=== PATIENT | female | born 1950 | race Caucasian/White ===

== ENCOUNTER 2017-05-13 06:26 | Day surgery (SDC) | payer MEDICARE, OTHER ==
[2017-05-13] MEDS ORDERED: Lactated Ringers 1,000 ML IV SCH (07:00)
[2017-05-13] MEDS ORDERED: Midazolam 1 MG/ML 2 ML SDV ONE (07:34)
[2017-05-13] MEDS ORDERED: fentaNYL 100 MCG/2 ML SDV ONE (07:34)
[2017-05-13] MEDS ORDERED: Propofol 200 MG/20 ML SDV ONE ×2 (07:34→08:00)
[2017-05-13 09:30] VITALS: BP 122/69
--- NOTE | 2017-05-13 11:40 | OR ---
DATE OF PROCEDURE: 05/13/2017 PREOPERATIVE DIAGNOSIS: History of colon polyps. POSTOPERATIVE DIAGNOSES: 1. Unremarkable colonoscopy. 2. History of colon polyps. PROCEDURE PERFORMED: Colonoscopy to the cecum. ANESTHESIA: IV anesthesia with monitored anesthesia care. INDICATION: This 66-year-old white female is referred for a colonoscopy because of a history of colon polyps. She says her last colonoscopic exam was done three years ago. I counseled her for the procedure including risks and alternatives, and she gave her informed consent to proceed. DESCRIPTION OF PROCEDURE: The patient was placed in the left lateral decubitus position. IV anesthesia was administered by the Anesthesia Service. Time-out was held. A rectal exam was performed, which was unremarkable. The flexible video Olympus colonoscope was introduced through her anus, up her rectum, and out her colon all the way to the cecum. To accomplish this, we did apply some abdominal compression. Once the cecum was reached, the scope was slowly withdrawn, examining the mucosa throughout. No mucosal abnormalities were noted. The scope was retroflexed in the rectum with the distal rectum appearin unremarkable. The scope was straightened and removed. She tolerated the procedure well. Artie Diaz MD /[id number] RAOUL
== END 2017-05-13 09:32 | disposition home or self-care (01) ==
LOC: JP.SDS 06:26
PROVIDERS: ATTEND Surgery
DX: Z12.11 Encounter for screening for malignant neoplasm of colon (principal); Z86.010 Personal history of colon polyps
CPT/HCPCS: G0105; J2250; J2704; J3010; J7120

== ENCOUNTER 2018-02-19 07:33 | Emergency (ER) | payer MEDICARE, OTHER ==
[2018-02-19 07:48] VITALS: BP 102/62
--- NOTE | 2018-02-19 08:13 | EDM.PDOC ---
ED HPI GENERAL MEDICAL PROBLEM - General Chief Complaint: Eye Problems Stated Complaint: LOW GRADE TEMP SORE THROAT Time Seen by Provider: 02/19/18 08:08 Source of Information: Reports: Patient, Family History Limitations: Reports: No Limitations - History of Present Illness INITIAL COMMENTS - FREE TEXT/NARRATIVE: pt has had some sinus congestion and a cough. She does have a sore throat. She noted this am that her rt eye was mattery and slightly red. Onset: Today, Other (pt has had the sinus problem earlier) Duration: Hour(s): Location: Reports: Face - Related Data Allergies Allergy/AdvReac Type Severity Reaction Status Date / Time Sulfa (Sulfonamide Allergy Rash Verified 05/13/17 06:51 Antibiotics) Home Meds: Home Meds Calcium Carb/Vit D3/Minerals [Hm Calcium 600 mg-Vit D Tab] 1 each PO DAILY 06/06 [History] Folic Acid/Mv,Fe,Min [Centrum Multivitamin] 1 each PO DAILY 06/06/13 [History] Wheat Dextrin [Benefiber] 1 each PO DAILY 05/13/17 [History] Past Medical History HEENT History: Reports: Hard of Hearing Gastrointestinal History: Reports: Colon Polyp [employer]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: Musculoskeletal History: Reports: Arthritis - Past Surgical History HEENT Surgical History: Reports: Other (See Below) Other HEENT Surgeries/Procedures: ear surgery 2012 GI Surgical History: Reports: Colonoscopy Musculoskeletal Surgical History: Reports: Other (See Below) Other Musculoskeletal Surgeries/Procedures:: ankle fracture with surgical repair Social & Family History - Family History Family Medical History: Noncontributory - Tobacco Use Smoking Status *Q: Never Smoker - Caffeine Use Caffeine Use: Reports: Coffee - Recreational Drug Use Recreational Drug Use: No ED ROS GENERAL - Review of Systems Review Of Systems: See Below Constitutional: Reports: Fatigue HEENT: Reports: Eye Discharge, Sinus Problem Respiratory: Reports: Cough Cardiovascular: Reports: No Symptoms Endocrine: Reports: No Symptoms GI/Abdominal: Reports: No Symptoms : Reports: No Symptoms Musculoskeletal: Reports: No Symptoms Skin: Reports: No Symptoms Neurological: Reports: No Symptoms ED EXAM GENERAL W FULL EYE - Physical Exam Exam: See Below Text/Narrative:: pt arrived with a mattery eye and she has been having a sore throat and sinus congestion General Appearance: Alert, Mild Distress, Other ( rt eye is mildly injected. ) Ears: Normal TMs Nose: Normal Inspection Throat/Mouth: Normal Inspection Head: Atraumatic Neck: Lymphadenopathy (R), Lymphadenopathy (L) Respiratory/Chest: No Respiratory Distress Cardiovascular: Regular Rate, Rhythm GI/Abdominal: Soft, Non-Tender Course - Vital Signs Last Recorded V/S: Last Vital Signs Temp 36.6 C 02/19/18 07:48 Pulse 78 02/19/18 07:48 Resp 12 02/19/18 07:48 BP 102/62 02/19/18 07:48 Pulse Ox 94 L 02/19/18 07:48 - Orders/Labs/Meds Orders: Active Orders 24 hr Category Date Time Status CULTURE STREP A CONFIRMATION [RM] Stat Lab 02/19/18 08:12 Results STREP SCRN A RAPID W CULT CONF [RM] Stat Lab 02/19/18 08:12 Ordered - Re-Assessments/Exams Free Text/Narrative Re-Assessment/Exam: 02/19/18 08:42 strept was neg. Departure - Departure Time of Disposition: 08:42 Disposition: Home, Self-Care 01 Condition: Fair Clinical Impression: Sinusitis - Discharge Information Referrals: Hans Kingston MD [Primary Care Provider] - Forms: ED Department Discharge Care Plan Goals: push fluids, cool mist humidifier, gentamycin eye drops 1-2 drops in the rt eye , amoxicillin 500mg tid. - My Orders Last 24 Hours: My Active Orders 02/19/18 08:12 CULTURE STREP A CONFIRMATION [RM] Stat STREP SCRN A RAPID W CULT CONF [RM] Stat - Assessment/Plan Last 24 Hours: My Active Orders 02/19/18 08:12 CULTURE STREP A CONFIRMATION [RM] Stat STREP SCRN A RAPID W CULT CONF [RM] Stat
== END 2018-02-19 08:55 | disposition home or self-care (01) ==
LOC: JP.ED 07:33
DX: J32.9 Chronic sinusitis, unspecified (principal); Z88.2 Allergy status to sulfonamides; Z79.899 Other long term (current) drug therapy
CPT/HCPCS: 87081; 87430; 99284

== ENCOUNTER 2018-11-17 12:13 | Emergency (ER) | payer MEDICARE ==
--- NOTE | 2018-11-17 12:46 | EDM.PDOC ---
ED HPI GENERAL MEDICAL PROBLEM - General Chief Complaint: Lower Extremity Injury/Pain Stated Complaint: FALL, RIGHT HIP PAIN Time Seen by Provider: 11/17/18 12:44 Source of Information: Reports: Patient History Limitations: Reports: No Limitations - History of Present Illness INITIAL COMMENTS - FREE TEXT/NARRATIVE: pt slipped on the ice and she landed on her rt hip area. She was not able to bear weight. Onset: Today, Sudden Duration: Hour(s): Location: Reports: Lower Extremity, Right Associated Symptoms: Reports: No Other Symptoms Right Hip Pain Score (Numeric/FACES): 8 - Related Data Allergies Allergy/AdvReac Type Severity Reaction Status Date / Time Sulfa (Sulfonamide Allergy Rash Verified 11/17/18 12:31 Antibiotics) Home Meds: Home Meds Calcium Carb/Vit D3/Minerals [Hm Calcium 600 mg-Vit D Tab] 1 each PO DAILY 06/06 [History] Folic Acid/Mv,Fe,Min [Centrum Multivitamin] 1 each PO DAILY 06/06/13 [History] Wheat Dextrin [Benefiber] 1 each PO DAILY 05/13/17 [History] Past Medical History HEENT History: Reports: Hard of Hearing Gastrointestinal History: Reports: 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: Musculoskeletal History: Reports: Arthritis - Past Surgical History HEENT Surgical History: Reports: Other (See Below) Other HEENT Surgeries/Procedures: ear surgery 2012 GI Surgical History: Reports: Colonoscopy Musculoskeletal Surgical History: Reports: Other (See Below) Other Musculoskeletal Surgeries/Procedures:: ankle fracture with surgical repair 1995 Social & Family History - Family History Family Medical History: Noncontributory - Tobacco Use Smoking Status *Q: Never Smoker - Caffeine Use Caffeine Use: Reports: Coffee - Recreational Drug Use Recreational Drug Use: No Review of Systems - Review of Systems Review Of Systems: See Below Constitutional: Reports: No Symptoms Eyes: Reports: No Symptoms Ears: Reports: No Symptoms Nose: Reports: No Symptoms Mouth/Throat: Reports: No Symptoms Respiratory: Reports: No Symptoms Cardiovascular: Reports: No Symptoms GI/Abdominal: Reports: No Symptoms Musculoskeletal: Reports: Other (pt has pain in the rt hip area. ) Skin: Reports: Dryness Neurological: Reports: No Symptoms ED EXAM, GENERAL - Physical Exam Exam: See Below Free Text/Narrative:: Pt was getting back in her car and she slipped and fell. She landed on the rt hip. She now is unable to weight bear on the rt leg. Exam Limited By: No Limitations General Appearance: Alert, Anxious, Moderate Distress, Other (pupils are equal and reactive. ) Ears: Normal TMs Nose: Normal Inspection Throat/Mouth: Normal Inspection Head: Atraumatic Neck: Normal Inspection Respiratory/Chest: No Respiratory Distress Cardiovascular: Regular Rate, Rhythm GI/Abdominal: Soft, Non-Tender (Female) Exam: Deferred Rectal (Female) Exam: Deferred Back Exam: Normal Inspection Extremities: Normal Inspection Neurological: Alert, Oriented, Normal Cognition Psychiatric: Anxious Course - Vital Signs Last Recorded V/S: Last Vital Signs Temp 36.0 C 11/17/18 12:28 Pulse 66 11/17/18 14:55 Resp 16 11/17/18 12:28 BP 142/101 H 11/17/18 14:55 Pulse Ox 98 11/17/18 14:55 - Orders/Labs/Meds Labs: Laboratory Tests 11/17/18 11/17/18 11/17/18 Range/Units 15:22 15:22 16:08 WBC 14.2 H (4.5-11.0) K/uL RBC 5.00 (3.30-5.50) M/uL Hgb 14.5 (12.0-15.0) g/dL Hct 43.4 (36.0-48.0) % MCV 87 (80-98) fL MCH 29 (27-31) pg MCHC 33 (32-36) % Plt Count 227 (150-400) K/uL Neut % (Auto) 80 H (36-66) % Lymph % (Auto) 13 L (24-44) % [place] % (Auto) 6 (2-6) % Eos % (Auto) 0 L (2-4) % Baso % (Auto) 0 (0-1) % Sodium 142 (140-148) mmol/L Potassium 3.5 L (3.6-5.2) mmol/L Chloride 106 (100-108) mmol/L Carbon Dioxide 27 (21-32) mmol/L Anion Gap 12.5 (5.0-14.0) mmol/L BUN 14 (7-18) mg/dL Creatinine 0.7 (0.6-1.0) mg/dL Est Cr Clr Drug Dosing 80.39 mL/min Estimated GFR (MDRD) > 60 (>60) Glucose 100 (74-106) mg/dL Calcium 9.0 (8.5-10.1) mg/dL Total Bilirubin 0.5 (0.2-1.0) mg/dL AST 22 (15-37) U/L ALT 33 (12-78) U/L Alkaline Phosphatase 86 (46-116) U/L Total Protein 6.7 (6.4-8.2) g/dL Albumin 3.7 (3.4-5.0) g/dL Globulin 3.0 (2.3-3.5) g/dL Albumin/Globulin Ratio 1.2 (1.2-2.2) Urine Color Yellow Urine Appearance Clear Urine pH 7.0 (4.5-8.0) Ur Specific [place] 1.010 (1.008-1.030) Urine Protein Negative (NEGATIVE) mg/dL Urine Glucose (UA) Normal (NEGATIVE) mg/dL Urine Ketones 15 H (NEGATIVE) mg/dL Urine Occult Blood Moderate (NEGATIVE) Urine Nitrite Negative (NEGATIVE) Urine Bilirubin Negative (NEGATIVE) Urine Urobilinogen Normal (NORMAL) mg/dL Ur Leukocyte Esterase Negative (NEGATIVE) Urine RBC 5-10 H (0-5) Urine WBC 0-5 (0-5) Ur Epithelial Cells Few Amorphous Sediment Not seen Urine Bacteria Few Urine Mucus Not seen Meds: Medications Discontinued Medications Generic Name Dose Route Start Last Admin Trade Name Freq PRN Reason Stop Dose Admin Hydromorphone HCl 0.5 mg 11/17/18 15:25 11/17/18 15:48 Dilaudid IVPUSH 11/17/18 15:26 0.5 mg ONETIME ONE Administration Sodium Chloride 1,000 mls @ 250 mls/hr 11/17/18 15:30 11/17/18 15:47 Normal Saline IV 250 mls/hr ASDIRECTED NEW Administration Ondansetron HCl 4 mg 11/17/18 15:54 11/17/18 15:56 Zofran IVPUSH 11/17/18 15:55 4 mg ONETIME ONE Administration Ondansetron HCl Confirm 11/17/18 15:55 Zofran Administered 11/17/18 15:56 Dose 4 mg .ROUTE .STK-MED ONE Sodium Chloride 10 ml 11/17/18 15:23 Saline Flush FLUSH ASDIRECTED PRN Keep Vein Open - Re-Assessments/Exams Free Text/Narrative Re-Assessment/Exam: 11/17/18 15:29 xrays revealed a fracture of the neck of the rt hip without displacement. Departure - Departure Time of Disposition: 16:35 Disposition: DC/Tfer to Acute Hospital 02 Condition: Fair Clinical Impression: Closed right hip fracture - Discharge Information Referrals: Hans Kingston MD [Primary Care Provider] - Forms: ED Department Discharge Care Plan Goals: keep npo, transfer to [facility] for admission
--- NOTE | 2018-11-17 14:28 | CRLCR ---
. INDICATION: Right hip and pelvis pain. TECHNIQUE: AP view of the pelvis as well as AP and lateral projections of the right hip. COMPARISON: None. FINDINGS: Acute nondisplaced subcapital fracture of right femoral neck. No other acute traumatic abnormality. Hip joint space is normal. 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 Sacroiliac joints grossly negative. IMPRESSION: Acute nondisplaced subcapital right femoral neck fracture. Dictated by Mingo Chan MD @ Nov 17 2018 2:24PM Signed by Dr. Mingo Chan @ Nov 17 2018 2:26PM
[2018-11-17 14:56] VITALS: BP 142/101
[2018-11-17] MEDS ORDERED: Sodium Chloride 0.9% 10 ML Syringe FLUSH PRN (15:23)
[2018-11-17] MEDS ORDERED: HYDROmorphone 0.5 MG/0.5 ML Syringe IVPUSH ONE (15:25)
[2018-11-17] MEDS ORDERED: Sodium Chloride 0.9% 1,000 ML IV SCH (15:30)
[2018-11-17] MEDS ORDERED: Ondansetron 4 MG/2 ML SDV IVPUSH ONE (15:54)
[2018-11-17] MEDS ORDERED: Ondansetron 4 MG/2 ML SDV ONE (15:55)
== END 2018-11-17 16:32 ==
LOC: JP.ED 12:13
DX: S72.011A Unspecified intracapsular fracture of right femur, initial encounter for closed fracture (principal); W00.0XXA Fall on same level due to ice and snow, initial encounter; Z88.2 Allergy status to sulfonamides; H91.90 Unspecified hearing loss, unspecified ear; Z86.010 Personal history of colon polyps
CPT/HCPCS: 36415; 51702; 73502; 80053; 81001; 85025; 96374; 96375; 99284; J1170; J2405; J7030

== ENCOUNTER 2022-05-28 06:19 | Day surgery (SDC) | payer MEDICARE ==
[2022-05-28] MEDS ORDERED: Sodium Chloride 0.9% 1,000 ML IV SCH (07:00)
[2022-05-28] MEDS ORDERED: Propofol 200 MG/20 ML SDV ONE (07:21)
[2022-05-28] MEDS ORDERED: Midazolam 1 MG/ML 2 ML SDV ONE (07:21)
[2022-05-28] MEDS ORDERED: fentaNYL 100 MCG/2 ML SDV ONE (07:21)
[2022-05-28 09:03] VITALS: BP 126/59; PULSE 78
== END 2022-05-28 09:00 | disposition home or self-care (01) ==
LOC: JP.SDS 06:19
PROVIDERS: ATTEND Surgery
DX: Z12.11 Encounter for screening for malignant neoplasm of colon (principal); D12.2 Benign neoplasm of ascending colon; Z86.010 Personal history of colon polyps; Z88.2 Allergy status to sulfonamides
CPT/HCPCS: 45380; 88305; J2250; J2704; J3010; J7030

== ENCOUNTER 2022-11-08 06:11 | Day surgery (SDC) | payer MEDICARE ==
[2022-11-08] MEDS ORDERED: Propofol 200 MG/20 ML SDV ONE (06:41)
[2022-11-08] MEDS ORDERED: Lidocaine 1% 2 ML ONE (06:42)
[2022-11-08] MEDS ORDERED: Lactated Ringers 1,000 ML IV SCH (07:00)
[2022-11-08 09:08] VITALS: BP 126/66; PULSE 79
== END 2022-11-08 09:20 | disposition home or self-care (01) ==
LOC: JP.SDS 06:11
PROVIDERS: ATTEND Student in an Organized Health Care Education/Training Program
DX: Z12.11 Encounter for screening for malignant neoplasm of colon (principal); K62.1 Rectal polyp; Q43.8 Other specified congenital malformations of intestine; Z86.010 Personal history of colon polyps; Z88.2 Allergy status to sulfonamides
CPT/HCPCS: 45380; 88305; J2704; J7120